=== PATIENT | male | born 1990 | race African-American/Black ===

== ENCOUNTER 2022-08-02 19:39 | Emergency (ER) | payer BC, OTHER ==
[~2022-08-02] VITALS: Ht 185.4 cm; Wt 71.7 kg
--- NOTE | 2022-08-02 19:48 | ED Cardiac General ---
History of Present Illness General Stated Complaint: PALPITATIONS History of Present Illness Date Seen by Provider: Aug 02, 2022 Time Seen by Provider: 19:48 Initial Comments 32-year-old male presents with feeling of having some heart palpitations. Patient reports that he occasionally gets some. He reports that he got this tonight when he was dropping his kids off with her mom. He got little bit dizzy. Symptoms of almost completely resolved now but he has had it occasionally before and just want to be checked out. He denies any chest pain. No nausea vomiting or other associated symptoms. Allergies and Home Medications Allergies Coded Allergies: No Known Drug Allergies (Unverified , 08/02/22) Patient Home Medication List Home Medication List Reviewed: Yes Review of Systems Review of Systems Constitutional: No chills; dizziness; No fever EENTM: No Symptoms Reported Respiratory: No Symptoms Reported Cardiovascular: No Symptoms Reported, Palpitations; Denies Syncope Gastrointestinal: No Symptoms Reported Genitourinary: No Symptoms Reported Musculoskeletal: no symptoms reported Skin: no symptoms reported Psychiatric/Neurological: No Symptoms Reported Endocrine: No Symptoms Reported Physical Exam Vital Signs Vital Signs - First Documented 08/02/22 19:40 Temp 36.4 Pulse 90 Resp 16 B/P (MAP) 137/77 (97) Pulse Ox 99 O2 Delivery Room Air Capillary Refill : Height, Weight, BMI Height: '" Weight: lbs. oz. 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 Skin: Normal Color, Warm/Dry Progress/Results/Core Measures Results/Orders Lab Results Laboratory Tests Test 08/02/22 19:54 Range/Units White Blood Count 8.0 4.3-11.0 10^3/uL Red Blood Count 6.78 H 4.30-5.52 10^6/uL Hemoglobin 14.2 13.3-17.7 g/dL Hematocrit 44 40-54 % Mean Corpuscular Volume 65 L 80-99 fL Mean Corpuscular Hemoglobin 21 L 25-34 pg Mean Corpuscular Hemoglobin Concent 32 32-36 g/dL Red Cell Distribution Width 19.5 H 10.0-14.5 % Platelet Count 165 130-400 10^3/uL Mean Platelet Volume 10.1 9.0-12.2 fL Immature Granulocyte % (Auto) 0 % Neutrophils (%) (Auto) 54 42-75 % Lymphocytes (%) (Auto) 36 12-44 % Monocytes (%) (Auto) 6 0-12 % Eosinophils (%) (Auto) 4 0-10 % Basophils (%) (Auto) 1 0-10 % Neutrophils # (Auto) 4.3 1.8-7.8 10^3/uL Lymphocytes # (Auto) 2.8 1.0-4.0 10^3/uL Monocytes # (Auto) 0.5 0.0-1.0 10^3/uL Eosinophils # (Auto) 0.3 0.0-0.3 10^3/uL Basophils # (Auto) 0.1 0.0-0.1 10^3/uL Immature Granulocyte # (Auto) 0.0 0.0-0.1 10^3/uL Sodium Level 139 135-145 MMOL/L Potassium Level 4.1 3.6-5.0 MMOL/L Chloride Level 99 98-107 MMOL/L Carbon Dioxide Level 25 21-32 MMOL/L Anion Gap 15 H 5-14 MMOL/L Blood Urea Nitrogen 11 7-18 MG/DL Creatinine 1.05 0.60-1.30 MG/DL Estimat Glomerular Filtration Rate 96 BUN/Creatinine Ratio 10 Glucose Level 97 70-105 MG/DL Calcium Level 9.8 8.5-10.1 MG/DL Corrected Calcium 8.5-10.1 MG/DL Magnesium Level 2.1 1.6-2.4 MG/DL Total Bilirubin 0.6 0.1-1.0 MG/DL Aspartate Amino Transf (AST/SGOT) 19 5-34 U/L Alanine Aminotransferase (ALT/SGPT) 16 0-55 U/L Alkaline Phosphatase 62 40-136 U/L Troponin I < 0.30 <0.30 NG/ML C-Reactive Protein < 0.30 <0.50 MG/DL Total Protein 7.6 6.4-8.2 GM/DL Albumin 4.9 H 3.2-4.5 GM/DL My Orders Orders - AGUILAR,CANDY L DO Cbc With Automated Diff (08/02/22 19:48) Comprehensive Metabolic Panel (08/02/22 19:48) Magnesium (08/02/22 19:48) Crp Fs (08/02/22 19:48) Troponin I Fs (08/02/22 19:48) Ekg Tracing (08/02/22 19:48) Monitor-Rhythm Ecg Trace Only (08/02/22 19:48) Ns Iv 1000 Ml (Sodium Chloride 0.9%) (08/02/22 19:50) Vital Signs/I&O 08/02/22 19:40 Temp 36.4 Pulse 90 Resp 16 B/P (MAP) 137/77 (97) Pulse Ox 99 O2 Delivery Room Air Progress Progress Note : Progress Note I suspect patient has some underlying anxiety causing a significant amount of his issues. Patient EKG is normal with no acute findings. Patient has negative labs for any acute findings. Patient's physical exam is negative. Patient's vitals are heart rates in the 70s to 100% oxygen with appropriate blood pressure for his age. Discussed with patient that he feels like he continues to have issues recommend he follow-up with his primary care provider for further outpatient evaluation and work-up. However with his symptoms happening especi ally driving off his kids I suspect there is an anxiety component. He is stable and discharged home Initial ECG Impression Date: Aug 02, 2022 Initial ECG Impression Time: 19:48 Initial ECG Rate: 77 Initial ECG Rhythm: Normal Sinus Initial ECG Intervals: Normal Initial ECG Impression: Normal Departure Impression Primary Impression: Palpitations Additional Impression: Adjustment reaction with anxious mood Disposition: 01 HOME, SELF-CARE Condition: Stable Departure-Patient Inst. Referrals: [facility] (PCP/Family) Primary Care Physician Patient Instructions: Palpitations (DC), Stress Add. Discharge Instructions: Please follow-up with your primary care provider if symptoms become recurrent or continue. CANDY AGUILAR DO Aug 02, 2022 19:48
[2022-08-02] MEDS ORDERED: NS IV 1000 ML 1,000 ML IV STA (19:50)
[2022-08-02 20:04] LABS: BASOPHILS # (AUTO) 0.1 10^3/uL (0.0-0.1); BASOPHILS % (AUTO) 1 % (0-10); EOSINOPHILS # (AUTO) 0.3 10^3/uL (0.0-0.3); EOSINOPHILS % (AUTO) 4 % (0-10); HEMATOCRIT 44 % (40-54); HEMOGLOBIN 14.2 g/dL (13.3-17.7); LYMPHOCYTES # (AUTO) 2.8 10^3/uL (1.0-4.0); LYMPHOCYTES % (AUTO) 36 % (12-44); MEAN CORPUSCULAR HEMOGLOBIN 21 pg (25-34); MEAN CORPUSCULAR HGB CONC 32 g/dL (32-36); MEAN CORPUSCULAR VOLUME 65 fL (80-99); MEAN PLATELET VOLUME 10.1 fL (9.0-12.2); MONOCYTES # (AUTO) 0.5 10^3/uL (0.0-1.0); MONOCYTES % (AUTO) 6 % (0-12); NEUTROPHILS # (AUTO) 4.3 10^3/uL (1.8-7.8); NEUTROPHILS % (AUTO) 54 % (42-75); PLATELET COUNT 165 10^3/uL (130-400)
[2022-08-02 20:24] LABS: ALANINE AMINOTRANSFERASE 16 U/L (0-55); ALBUMIN 4.9 GM/DL (3.2-4.5); ALKALINE PHOSPHATASE 62 U/L (40-136); BILIRUBIN,TOTAL 0.6 MG/DL (0.1-1.0); BUN/CREATININE RATIO 10; CALCIUM 9.8 MG/DL (8.5-10.1); CARBON DIOXIDE 25 MMOL/L (21-32); CHLORIDE 99 MMOL/L (98-107); CREATININE SERUM 1.05 MG/DL (0.60-1.30); GFR ESTIMATED 96; GLUCOSE 97 MG/DL (70-105); MAGNESIUM 2.1 MG/DL (1.6-2.4); POTASSIUM 4.1 MMOL/L (3.6-5.0); SODIUM 139 MMOL/L (135-145); TOTAL PROTEIN 7.6 GM/DL (6.4-8.2)
[2022-08-02 20:56] VITALS: BP 118/75
== END 2022-08-02 20:56 | disposition home or self-care (01) ==
LOC: ER FS 19:41
DX: F43.22 Adjustment disorder with anxiety (principal)
CPT/HCPCS: 36415; 80053; 83735; 84484; 85025; 86141; 93005; 93041

== ENCOUNTER 2022-08-05 10:42 | Emergency (ER) | payer BC ==
--- NOTE | 2022-08-05 11:07 | ED Cardiac General ---
History of Present Illness General Chief Complaint: Cardiac/General Problems Stated Complaint: ST ELEV Nursing Triage Note: Patient presents to the ED from [facility] for further evaluation due to ST elevation being noted on his EKG during his follow up visit. Patient was seen in ED on Wednesday for "heart racing" and discharged home. Patient denies any chest pain, fever, or shortness of breath. Source: patient Exam Limitations: no limitations History of Present Illness Date Seen by Provider: Aug 05, 2022 Time Seen by Provider: 10:54 Initial Comments 32-year-old male presents the emergency department today from the [facility] clinic for reported abnormal EKG. Notably he was seen here on Wednesday for "heart racing." Work-up was unremarkable at that time per record review. He states he has not had any more symptoms since that time. Overall he has had episodes of his heart racing for about 2 to 3 months now. He drinks 1 caffeinated beverage daily, no energy drinks or workout supplements no medications. He is asymptomatic at the time of presentation and was being seen in the [facility] clinic for a follow-up appointment after his ER visit. They were concerned about the appearance of his EKG. Allergies and Home Medications Allergies Coded Allergies: No Known Drug Allergies (Unverified , 08/02/22) Patient Home Medication List Home Medication List Reviewed: Yes Review of Systems Review of Systems Constitutional: no symptoms reported EENTM: No Symptoms Reported Respiratory: No Symptoms Reported Cardiovascular: No Symptoms Reported Gastrointestinal: No Symptoms Reported Genitourinary: No Symptoms Reported Musculoskeletal: no symptoms reported Skin: no symptoms reported Psychiatric/Neurological: No Symptoms Reported Endocrine: No Symptoms Reported Hematologic/Lymphatic: No Symptoms Reported Past Lniatvy-Hojfdh-Umecub Hx Patient Social History Tobacco Use?: Yes Tobacco type used: Cigarettes Use of E-Cig and/or Vaping dev: No Substance use?: No Alcohol Use?: No Pt feels they are or have been: No Immunizations Up To Date First/Initial COVID19 Vaccinat: Date unknown Second COVID19 Vaccination Jamey: Date unknown Third COVID19 Vaccination Date: Date unknown Past Medical History Surgery/Hospitalization HX: GERD Family Medical History Reviewed Nursing Family Hx Physical Exam Vital Signs Vital Signs - First Documented 08/05/22 10:48 Temp 36.2 Pulse 69 Resp 14 B/P (MAP) 117/81 (93) Pulse Ox 100 O2 Delivery Room Air Capillary Refill : Less Than 3 Seconds Height, Weight, BMI Height: '" Weight: lbs. oz. kg; 20.00 BMI Method: General Appearance: No Apparent Distress, WD/WN HEENT: Normal ENT Inspection, Pharynx Normal Neck: Full Range of Motion, Supple Respiratory: Chest Non Tender, Lungs Clear, Normal Breath Sounds, No Accessory Muscle Use, No Respiratory Distress Cardiovascular: Regular Rate, Rhythm, No Murmur, Normal Peripheral Pulses Gastrointestinal: Normal Bowel Sounds, No Organomegaly, No Pulsatile Mass, Non Tender, Soft Neurologic/Psychiatric: Alert, Oriented x3, Normal Mood/Affect Skin: Normal Color, Warm/Dry Progress/Results/Core Measures Results/Orders My Orders Orders - CURRYGUNNAR L DO Ekg Tracing (08/05/22 10:48) Vital Signs/I&O 08/05/22 10:48 Temp 36.2 Pulse 69 Resp 14 B/P (MAP) 117/81 (93) Pulse Ox 100 O2 Delivery Room Air Blood Pressure Mean: 93 Comment Twelve-lead EKG shows sinus rhythm at 63 bpm. Normal intervals with a normal axis. There are early repolarization type changes in V3 V4 V5 and V6. No T wave abnormalities. No ectopy. No STEMI. Departure Communication (Admissions) The patient is hemodynamically stable. I reviewed an EKG here that shows likely early repolarization type changes in the precordial leads. There is no evidence for concerning ST segments or T wave abnormalities. He is completely asymptomatic at this time. He is working with his primary doctor on further delineation of his heart racing episodes. He had lab work 3 days ago and given that he is asymptomatic at present I do not think there is an indication to repeat this. He is discharged in stable condition. Impression Primary Impression: Encounter for medical screening examination Additional Impression: Palpitations Disposition: HOME, SELF-CARE Condition: Stable Departure-Patient Inst. Referrals: VERONICA DEMPSEY MD (PCP) Primary Care Physician [facility] (Family) Primary Care Physician Patient Instructions: Palpitations Add. Discharge Instructions: As discussed the electrical tracing of your heart is normal. Regarding your palpitations, I recommend you follow-up with your primary doctor to discuss Holter monitor or an event monitor which could further delineate the symptoms. Return to the emergency department immediately for any chest pain, shortness of breath or if your symptoms change in any way concerning to you. All discharge instructions reviewed with patient and/or family. Voiced understanding. GUNNAR ZAPIEN DO Aug 05, 2022 11:07
[2022-08-05 11:08] VITALS: BP 116/79
== END 2022-08-05 11:10 | disposition home or self-care (01) ==
LOC: EDUNIT# 10:42 → ER FS 10:44
DX: R00.2 Palpitations (principal); F17.210 Nicotine dependence, cigarettes, uncomplicated; Z28.310 Unvaccinated for COVID-19

== ENCOUNTER 2022-08-13 06:51 | Emergency (ER) | payer BC ==
[~2022-08-13] VITALS: Ht 182 cm; Wt 72.0 kg
[2022-08-13] MEDS ORDERED: FAMOTIDINE 20 MG (PEPCID) TABLET PO STA (07:03)
[2022-08-13] MEDS ORDERED: ANTACID SUSP 30 ML UDC (MYLANTA) PO ONE (07:15)
[2022-08-13] MEDS ORDERED: LIDOCAINE 2% VISCOUS 15 ML UDC PO ONE (07:15)
[2022-08-13] MEDS ORDERED: PANT40TA52 PO (07:19)
--- NOTE | 2022-08-13 07:19 | ED Cardiac General ---
History of Present Illness General Chief Complaint: General Problems/Pain Stated Complaint: HEART RACING,SHAKING,CHEST TIGHTNESS Source: patient, old records Exam Limitations: no limitations History of Present Illness Date Seen by Provider: Aug 13, 2022 Time Seen by Provider: 06:54 Initial Comments 32-year-old male with no pertinent past medical history coming in due to feeling like his heart is racing and having some chest tightness and epigastric burning discomfort. This is really been going on for a couple months and this is his third time in the ER in roughly 1 week for the same issue. He states that started getting worse again a couple hours prior to arrival when he was at work. Denies any cardiac history, denies any history of DVT or PE, no lower extremity swelling or pain, no hemoptysis or cough, no shortness of breath, no recent surgery, no hormone use, no history of cancer, no trauma, fever, nausea, vomiting, diarrhea, weakness, numbness, or any other concerns. Nothing really seems to make it better or worse. Allergies and Home Medications Allergies Coded Allergies: No Known Drug Allergies (Unverified , 08/02/22) Patient Home Medication List Home Medication List Reviewed: Yes Pantoprazole Sodium (Pantoprazole Sodium) 40 Mg Tablet.dr, 40 MG PO DAILY Prescribed by: VIKRAM LEGGETT on 08/13/22 0719 Review of Systems Review of Systems Constitutional: No fever EENTM: No Symptoms Reported Respiratory: No Symptoms Reported Cardiovascular: See HPI Gastrointestinal: See HPI Genitourinary: No Symptoms Reported Musculoskeletal: no symptoms reported Skin: no symptoms reported Psychiatric/Neurological: No Symptoms Reported Endocrine: No Symptoms Reported Hematologic/Lymphatic: No Symptoms Reported Past Txtwcgc-Lyufwb-Vvxwfb Hx Patient Social History Tobacco Use?: No Immunizations Up To Date First/Initial COVID19 Vaccinat: Date unknown Second COVID19 Vaccination Jamey: Date unknown Third COVID19 Vaccination Date: Date unknown Past Medical History Surgery/Hospitalization HX: GERD Surgeries: No Physical Exam Vital Signs Vital Signs - First Documented 08/13/22 07:27 Temp 36.3 Pulse 85 Resp 16 B/P (MAP) 121/89 (100) Pulse Ox 100 O2 Delivery Room Air Capillary Refill : Height, Weight, BMI Height: '" Weight: lbs. oz. kg; 20.00 BMI Method: General Appearance: No Apparent Distress, WD/WN HEENT: PERRL/EOMI, Normal ENT Inspection, Pharynx Normal Neck: Full Range of Motion, Normal Inspection, Non Tender, Supple Respiratory: Chest Non Tender, Lungs Clear, Normal Breath Sounds, No Accessory Muscle Use, No Respiratory Distress Cardiovascular: Regular Rate, Rhythm, No Edema, Normal Peripheral Pulses Gastrointestinal: Normal Bowel Sounds, Non Tender, Soft; No Distended, No Guarding Extremity: Normal Capillary Refill, Normal Inspection, Normal Range of Motion, Non Tender, No Calf Tenderness, No Pedal Edema Neurologic/Psychiatric: Alert, No Motor/Sensory Deficits, Normal Mood/Affect Skin: Normal Color, Warm/Dry Progress/Results/Core Measures Results/Orders My Orders Orders - VIKRAM LEGGETT MD Ekg Tracing (08/13/22 07:00) Chest Pa/Lat (2 View) (08/13/22 07:00) Lidocaine 2% Viscous 15 Ml (Xylocaine Vi (08/13/22 07:15) Famotidine Tablet (Pepcid Tablet) (08/13/22 07:03) Antacid Suspension (Mylanta Suspension (08/13/22 07:15) Medications Given in ED Current Medications Medications Dose Ordered Sig/Charleen Route Start Time Stop Time Status Last Admin Dose Admin Al Hydrox/Mg Hydrox/Simethicone 30 ml ONCE ONCE PO 08/13/22 07:15 08/13/22 07:16 DC 08/13/22 07:12 30 ML Lidocaine HCl 15 ml ONCE ONCE PO 08/13/22 07:15 08/13/22 07:16 DC 08/13/22 07:12 15 ML Vital Signs/I&O 08/13/22 07:27 Temp 36.3 Pulse 85 Resp 16 B/P (MAP) 121/89 (100) Pulse Ox 100 O2 Delivery Room Air Progress Progress Note : Progress Note 32-year-old male with above history coming in due to palpitations, chest discomfort, and epigastric burning. ABCs were intact and vitals were stable on presentation. EKG with no acute ischemic changes on my interpretation and appears similar to prior EKG. Chest x-ray ordered and interpreted by me showing no pneumothorax, no pneumonia, normal cardiac silhouette. I did a [id number] ultrasound showing normal ejection fraction, no pericardial effusion, normal appearing IVC. I reviewed his previous ER visits for the same complaint within the past week. During that time during his initial visit he had lab work for the same issue with a negative troponin, normal potassium, normal magnesium, normal hemoglobin, normal CRP. This makes ACS highly unlikely, especially given his age and lack of risk factors. He is otherwise low risk for a PE per [place] criteria and is PERC negative. Considered additional blood work today, but given the similar presentation, we will forego this at this time. He was given a GI cocktail with near total improvement in symptoms. I will recommend an outpatient Holter monitor and cardiology follow-up. I believe he is otherwise stable for discharge with outpatient follow-up. He was sent home with strict return precautions. Initial ECG Impression Date: Aug 13, 2022 Initial ECG Impression Time: :23 Initial ECG Rate: 66 Initial ECG Rhythm: Normal Sinus Comment Narrow QRS, normal axis, no significant ST changes or T wave abnormalities, benign early repolarization pattern, appears similar to prior EKG Diagnostic Imaging Diagonstic Imaging: Xray (chest) Comments NAME: CORAL MELENDEZ [facility] REC#: [id number] PT STATUS: REG ER : 1990 PHYSICIAN: VIKRAM LEGGETT MD ADMIT DATE: 08/13/22/ER FS Draft Date of Exam:08/13/22 CHEST PA/LAT (2 VIEW) Clinical indications: Patient with chest pain. EXAM: Chest x-ray PA and lateral views. COMPARISON: None. FINDINGS: Lungs/pleura: Lungs are clear. There is no pneumothorax. There is no pleural effusion. Mediastinum: Unremarkable. Pulmonary vasculature: Unremarkable. Heart: Unremarkable. Bones/extrathoracic soft tissue: Unremarkable. IMPRESSION: There is no radiographic evidence of acute cardiopulmonary process. Dictated on workstation # [id number] Dict: 08/13/22 0721 Trans: 08/13/22 0732 PAMELA [id number] Interpreted by: VALERIA OHARA MD Electronically signed by: Departure Impression Primary Impression: Palpitations Additional Impression: Chest pain Qualified Codes: R07.82 - Intercostal pain Disposition: 01 HOME, SELF-CARE Condition: Stable Departure-Patient Inst. Decision time for Depature: 07:45 Referrals: VERONICA DEMPSEY MD (PCP) Primary Care Physician [facility] (Family) Primary Care Physician Patient Instructions: Chest Pain That Is Not Caused by the Heart (DC) Add. Discharge Instructions: I recommend calling your regular doctor to get an order for an outpatient Holter monitor to monitor your heart rate and rhythm over a longer period of time. There is a possibility you go into SVT which is a heart rhythm which isn't particularly dangerous in most people since it goes away by itself most of the time. A Holter monitor would be able to catch this. We also recommend a referral to cardiology. It does not appear like you are having a heart attack or anything more life-threatening at this time. Medications for reflux and pain were sent to your pharmacy to see if that will help with the discomfort since they helped while you were in the ER today. Scripts Pantoprazole Sodium (Pantoprazole Sodium) 40 Mg Tablet.dr 40 MG PO DAILY for 30 Days, #30 TAB Prov: VIKRAM LEGGETT MD 08/13/22 Work/School Note: Work Release Form Date Seen in the Emergency Department: Aug 13, 2022 Return to Work: Aug 14, 2022 Restrictions: No Restrictions VIKRAM LEGGETT MD Aug 13, 2022 07:19
[2022-08-13 07:27] VITALS: BP 121/89
--- NOTE | 2022-08-13 07:33 | Diagnostic Imaging Report ---
Clinical indications: Patient with chest pain. EXAM: Chest x-ray PA and lateral views. COMPARISON: None. FINDINGS: Lungs/pleura: Lungs are clear. There is no pneumothorax. There is no pleural effusion. Mediastinum: Unremarkable. Pulmonary vasculature: Unremarkable. Heart: Unremarkable. Bones/extrathoracic soft tissue: Unremarkable. IMPRESSION: There is no radiographic evidence of acute cardiopulmonary process. Dictated by: Dictated on workstation # [id number]
== END 2022-08-13 07:57 | disposition home or self-care (01) ==
LOC: EDUNIT# 06:51 → ER FS 06:52
DX: R00.2 Palpitations (principal); R07.89 Other chest pain; R10.13 Epigastric pain
CPT/HCPCS: 71046; 93005

== ENCOUNTER 2022-09-26 19:25 | Emergency (ER) | payer BC ==
[~2022-09-26] VITALS: Ht 185.4 cm; Wt 72.8 kg
[~2022-09-26 19:25] MED LIST: PANT40TA52 PO
--- NOTE | 2022-09-26 20:02 | ED General ---
General Chief Complaint: General Problems/Pain Stated Complaint: UPPER ABD PAIN/DIZZINESS Source of Information: Patient Exam Limitations: No Limitations History of Present Illness Date Seen by Provider: Sep 26, 2022 Time Seen by Provider: 19:45 Initial Comments Patient is a 32-year-old -Citizen Of [place] male who presents with intermittent epigastric pain for the past several weeks which is reported as mild today following lunch, as well as, dizziness upon standing and with movement. Patient states he feels briefly dizzy and has occasional palpitations that occur around the time he is experienced epigastric pain. This is consistent with his known patterns. Patient has been seen in the emergency department multiple times for the same and being diagnosed with GERD and anxiety. No vomiting, hematemesis, melena or hematochezia. Reports only mild epigastric pain/tenderness on exam. Pain is nonradiating nonmigratory. He is compliant with Protonix and is scheduled for an EGD in the next month. He acknowledges acknowledges drinking a moderate amount of alcohol last night, eating spicy foods and taking an occasional NSAID. No other acute symptoms or complaints. Timing/Duration: 4-6 Hours Severity: Mild Modifying Factors: improves with Other Associated Systoms: Other Allergies and Home Medications Allergies Coded Allergies: No Known Drug Allergies (Unverified , 08/02/22) Patient Home Medication List Home Medication List Reviewed: Yes Pantoprazole Sodium (Pantoprazole Sodium) 40 Mg Tablet.dr, 40 MG PO DAILY Prescribed by: VIKRAM LEGGETT on 08/13/22 0719 Review of Systems Review of Systems Constitutional: see HPI EENTM: see HPI Respiratory: see HPI Cardiovascular: see HPI Gastrointestinal: see HPI Genitourinary: see HPI Musculoskeletal: see HPI Skin: see HPI Psychiatric/Neurological: See HPI Hematologic/Lymphatic: See HPI Immunological/Allergic: see HPI All Other Systems Reviewed Negative Unless Noted: No Past Bjlxniq-Hbwfpp-Lhlknq Hx Patient Social History Tobacco Use?: No Smoking Status: Former Smoker Substance use?: No Alcohol Use?: Yes Alcohol Frequency: Couple times a week Pt feels they are or have been: No Immunizations Up To Date First/Initial COVID19 Vaccinat: Date unknown Second COVID19 Vaccination Jamey: Date unknown Third COVID19 Vaccination Date: Date unknown 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 oz. kg; 21.00 BMI Method: General Appearance: No Apparent Distress, WD/WN, Anxious Eyes: Bilateral Eye Normal Inspection, Bilateral Eye PERRL, Bilateral Eye EOMI HEENT: PERRL/EOMI, Pharynx Normal Neck: Full Range of Motion, Normal Inspection Respiratory: Chest Non Tender, Lungs Clear, Normal Breath Sounds Cardiovascular: Regular Rate, Rhythm Gastrointestinal: Soft, Tenderness (Mild epigastric pain/tenderness) Back: Normal Inspection Extremity: Normal Capillary Refill Neurologic/Psychiatric: Alert, No Motor/Sensory Deficits Focused Exam Sepsis Stage: Ruled Out Progress/Results/Core Measures Suspected Sepsis SIRS Temperature: Pulse: Respiratory Rate: Blood Pressure / Mean: Results/Orders My Orders Orders - DONNY HILL DO Ekg Tracing (09/26/22 19:43) Orthostatic Vital Signs (Adult (09/26/22 19:43) Accucheck Fasting (09/26/22 19:44) Vital Signs/I&O Capillary Refill : Departure Communication (Admissions) EKG: Sinus rhythm, no acute ST-T wave changes. No ectopy noted. Patient with epigastric pain coinciding with dizziness. He has had numerous ED work-ups which have been nondiagnostic he has been evaluated by his PCP and is awaiting EGD. EKG, orthostatics and Accu-Chek are reassuring. Patient exam is most consistent with GERD with secondary anxiety in the setting of increased life stressors. Did discuss with the patient importance of elevating all NSAIDs, alcohol spicy food and caffeine from his diet and increasing Protonix to twice daily. He is likewise instructed to follow-up with the PCP for reevaluation of dizziness and management of anxiety Impression Primary Impression: Epigastric pain Additional Impressions: Dizziness Anxiety state Disposition: HOME, SELF-CARE Condition: Stable Departure-Patient Inst. Decision time for Depature: 20:15 Referrals: VERONICA DEMPSEY MD (PCP) Primary Care Physician [facility] (Family) Primary Care Physician Patient Instructions: Anxiety, Adult (DC) Add. Discharge Instructions: You were evaluated in the emergency department for epigastric pain and dizziness. EKG, postural vital signs and Accu-Chek were obtained which are reassuring. Your exam is most consistent with GERD with secondary anxiety. Please eliminate all NSAIDs, caffeine, alcohol and spicy foods. Increase Protonix to twice daily and follow-up with your GI specialist as scheduled. Follow-up with your PCP for reevaluation of dizziness and anxiety state. In the meantime if you develop new or worsening symptoms, return to the emergency department.. All discharge instructions reviewed with patient and/or family. Voiced understanding. DONNY HILL DO Sep 26, 2022 20:02
[2022-09-26 20:05] VITALS: BP_SYST 109; BP_SYST 112; BP_SYST 117; BP_DIAS 65; BP_DIAS 76
[2022-09-26 20:15] VITALS: BP 122/71
== END 2022-09-26 20:15 | disposition home or self-care (01) ==
LOC: EDUNIT# 19:25 → ER FS 19:28
DX: R10.13 Epigastric pain (principal); F41.1 Generalized anxiety disorder; R42 Dizziness and giddiness; K21.00 Gastro-esophageal reflux disease with esophagitis, without bleeding; Z91.14 Patient's other noncompliance with medication regimen; Z87.891 Personal history of nicotine dependence
CPT/HCPCS: 82947; 93005

== ENCOUNTER → 2022-10-08 | Outpatient (CLI) | payer BC | LOC: CARD 10:30 | PROVIDERS: ATTEND Internal Medicine Cardiovascular Disease | DX: R00.2 Palpitations (principal) | CPT/HCPCS: 93306 ==